=== PATIENT | female | born 1945 | race Caucasian/White ===

== ENCOUNTER → 2018-06-22 | Outpatient (CLI) | payer MEDICARE, OTHER ==
[2018-06-22 14:28] LABS: Protein, Urine Random 6.5 mg/dL (0.0-11.9)
[2018-06-22 14:46] LABS: Creatinine, Urine Random 40.5 mg/dL (27.00-270.00)
== END | disposition home or self-care (01) ==
LOC: LAB SHORT 13:34 → LAB 13:34
PROVIDERS: Internal Medicine
DX: N18.3 Chronic kidney disease, stage 3 (moderate) (principal)
CPT/HCPCS: 82570; 84156

== ENCOUNTER 2023-02-26 07:46 | Day surgery (SDC) | payer OTHER ==
[~2023-02-26] VITALS: Ht 152.4 cm; Wt 68.6 kg
[2023-02-26] MEDS ORDERED: AMLODIPINE BESY10 MG PO (08:23)
[2023-02-26] MEDS ORDERED: DULOXETINE HCL60 M1 PO (08:23)
[2023-02-26] MEDS ORDERED: BUMETANIDE0.5 M6 PO (08:24)
[2023-02-26] MEDS ORDERED: EUTHYROX88 MC1 PO (08:24)
[2023-02-26] MEDS ORDERED: BUPROPION HCL200 M1 PO (08:26)
[2023-02-26] MEDS ORDERED: LISI20 PO (08:26)
[2023-02-26] MEDS ORDERED: LOVASTATIN40 MG PO (08:27)
[2023-02-26] MEDS ORDERED: METFORMIN HCL500 M2 PO (08:27)
[2023-02-26] MEDS ORDERED: DOCU100 PO ×2 (08:28)
[2023-02-26] MEDS ORDERED: TRAM50 PO ×2 (08:30→08:31)
[2023-02-26] MEDS ORDERED: BUPRENORPHN-NA1 EACH (08:33)
--- NOTE | 2023-02-26 08:51 | NUR ---
02/26/23 0851 Angy Mosley 0860 JUAN 0810
[2023-02-26 09:17] VITALS: BP 132/77
--- NOTE | 2023-02-26 09:45 | NUR ---
02/26/23 0945 Manuel Troy IV REMOVED INTACT. SITE WNL.
== END 2023-02-26 09:40 | disposition home or self-care (01) ==
LOC: ORSCSDS 07:46
PROVIDERS: Student in an Organized Health Care Education/Training Program
PROC: 08RK3JZ Replacement of Left Lens with Synthetic Substitute, Percutaneous Approach (ICD-10-PCS; principal; 2023-02-26 09:00)
DX: E11.36 Type 2 diabetes mellitus with diabetic cataract (principal); H25.12 Age-related nuclear cataract, left eye; Z96.1 Presence of intraocular lens; K21.9 Gastro-esophageal reflux disease without esophagitis; I12.9 Hypertensive chronic kidney disease with stage 1 through stage 4 chronic kidney disease, or unspecified chronic kidney disease; E78.5 Hyperlipidemia, unspecified; E11.22 Type 2 diabetes mellitus with diabetic chronic kidney disease; N18.30 Chronic kidney disease, stage 3 unspecified; Z79.84 Long term (current) use of oral hypoglycemic drugs; Z79.899 Other long term (current) drug therapy
CPT/HCPCS: 82947; J2250; J7040; V2632